=== PATIENT | female | born 1985 | race Caucasian/White ===

== ENCOUNTER 2019-01-24 14:24 | Outpatient (CLI) | payer BC ==
[~2019-01-24 14:24] MED LIST: Iopamidol 300 61% 30 ML VIAL ONE
--- NOTE | 2019-01-24 16:17 | RAD ---
EXAM: XR Hysterosalpingogram PROVIDED CLINICAL HISTORY: Tubal occlusion. COMPARISON: None Fluoroscopy: Total fluoroscopy time 0.9 minutes with total dose of 350.2 mGy meter squared. TECHNIQUE/FINDINGS: After informed consent was obtained, the patient was placed on the fluoroscopy table in the supine po sition. The cervix was visualized after placement of the speculum. The cervix was prepped in usual fashion. A sound device was placed within the cervix demonstrating patency. A 5 [place] catheter with distal balloon was then inserted into the endocervical canal, and the distal balloon was filled with 4 mL of air. Nonionic contrast was slowly and gently injected demonstrating overall normal appea alan and morphology of the endometrial canal. The bilateral fallopian tubes are visualized and have a normal appearance without definite filling defect appreciated. There is free spill of contrast from each fallopian tube; although, slightly delayed on the left compared to the right. The balloon was deflated, and the catheter was removed. Filling defects are seen in the lowermost endomet rial canal after removal of the catheter which are likely related to gas densities. Patient tolerated the procedure well and without immediate complication. IMPRESSION: 1. Normal-appearing endometrial canal and bilateral fallopian tubes. There is evidence of free spill of contrast from each fallopian tube.
== END 2019-01-24 14:25 | disposition home or self-care (01) ==
LOC: RAD 14:24
PROVIDERS: ATTEND Obstetrics & Gynecology Reproductive Endocrinology
DX: N97.1 Female infertility of tubal origin (principal)
CPT/HCPCS: 58340; 74740; Q9967